=== PATIENT | male | born 1950 | race Caucasian/White ===

== ENCOUNTER 2019-03-23 17:13 | Emergency (ER) | payer MEDICARE, BC ==
[2019-03-23] MEDS ORDERED: Sodium Chloride 0.9% 10 ML Syringe FLUSH PRN (17:21)
[2019-03-23] MEDS ORDERED: 50% Dextrose in Water 50 ML Syringe IVPUSH ONE (17:28)
--- NOTE | 2019-03-23 17:55 | EDM.PDOC ---
ED HPI GENERAL MEDICAL PROBLEM - General Chief Complaint: Diabetic Complaint Stated Complaint: HYPOGLYCEMIC Time Seen by Provider: 03/23/19 17:20 Source of Information: Reports: Patient History Limitations: Reports: No Limitations - History of Present Illness INITIAL COMMENTS - FREE TEXT/NARRATIVE: Patient is a 69-year-old gentleman who presents to the emergency department this evening with a complaint of hypoglycemia. Per family, patient was acting confused at approximately 4 p.m. today and they suspected that his glucose was low. Glucose was assessed at 35. Family decided to bring patient to the emergency department. Upon presentation, patient was coherent and given juice and crackers by nurse. Recheck glucose was 66. Patient states that he did have a large lunch today, and believes he took his appropriate dose of insulin earlier today. However, he is not sure. Patient does have history of glucose swings. He stated that he took his normal dose this morning without checking his glucose. However, for lunch he had just protein and no carbohydrates. Upon examination, patient states that he feels much better, denies any chest pain, shortness of breath, fever, headache, abdominal pain, nausea, or vomiting. Patient states he does have a wound and suspected infection of left forearm. However, he is not on antibiotics at this time. Patient takes just insulin and no oral diabetic medication. Onset: Today Duration: Hour(s): Severity: Mild Improves with: Reports: None Worsens with: Reports: None Associated Symptoms: Reports: Confusion, Diaphoresis, Weakness. Denies: Chest Pain, Fever/Chills, Nausea/Vomiting, Rash, Shortness of Breath, Syncope - Related Data Allergies Allergy/AdvReac Type Severity Reaction Status Date / Time Likuzre-Omw-Ixg Reductase Allergy Hives Verified 03/23/19 17:24 Inhibitor Home Meds: Home Meds Benazepril/Hydrochlorothiazide [Lotensin Hct 20-25 mg Tablet] 1 each PO DAILY [History] Ezetimibe 10 mg PO DAILY 03/23/19 [History] Furosemide [Lasix] 40 mg PO BID 03/23/19 [History] Insulin Aspart [NovoLOG] 30 - 40 unit SUBCUT TID 03/23/19 [History] Insulin Detemir [Levemir] 50 unit SUBCUT BEDTIME 03/23/19 [History] Omeprazole 20 mg PO BEDTIME 03/23/19 [History] ED ROS GENERAL - Review of Systems Review Of Systems: ROS reveals no pertinent complaints other than HPI. Constitutional: Reports: Weakness, Diaphoresis HEENT: Reports: No Symptoms Respiratory: Reports: No Symptoms Cardiovascular: Reports: No Symptoms Endocrine: Reports: Low Glucose GI/Abdominal: Reports: No Symptoms : Reports: No Symptoms Musculoskeletal: Reports: No Symptoms Skin: Reports: No Symptoms Neurological: Reports: Confusion, Weakness Psychiatric: Reports: No Symptoms Hematologic/Lymphatic: Reports: No Symptoms Immunologic: Reports: No Symptoms ED EXAM GENERAL NO PERIP PULSE - Physical Exam Exam: See Below Exam Limited By: No Limitations General Appearance: Alert, WD/WN, No Apparent Distress Eye Exam: Bilateral Eye: Normal Inspection Nose: Normal Inspection, Normal Mucosa, No Blood Throat/Mouth: Normal Inspection, Normal Oropharynx, No Airway Compromise Head: Atraumatic, Normocephalic Neck: Normal Inspection Respiratory/Chest: No Respiratory Distress, Lungs Clear, Normal Breath Sounds, No Accessory Muscle Use, Chest Non-Tender Cardiovascular: No Murmur, Extra Beats GI/Abdominal: Normal Bowel Sounds, Soft, Non-Tender, No Organomegaly, No Distention, No Abnormal Bruit, No Mass Back Exam: Normal Inspection. No: CVA Tenderness (L), CVA Tenderness (R) Extremities: Normal Inspection, No Pedal Edema Neurological: Alert, Oriented, CN II-XII Intact, Normal Cognition, No Motor/ Sensory Deficits Psychiatric: Normal Affect, Normal Mood Skin Exam: Warm, Dry, Intact, Normal Color, No Rash EKG INTERPRETATION EKG Date: 03/23/19 Time: 17:45 Rhythm: Other (Sinus rhythm with PVCs) Rate (Beats/Min): 72 [place]: Normal P-Wave: Present QRS: Normal ST-T: Normal QT: Normal Comparison: NA - No Prior EKG Course - Vital Signs Last Recorded V/S: Last Vital Signs Temp 97 F 03/23/19 17:15 Pulse 82 03/23/19 17:15 Resp 20 03/23/19 17:15 BP 143/75 H 03/23/19 17:15 Pulse Ox 98 03/23/19 17:15 - Orders/Labs/Meds Orders: Active Orders 24 hr Category Date Time Status EKG Documentation Completion [RC] ASDIRECTED Care 03/23/19 17:40 Ordered Peripheral IV Care [RC] . DIRECTED Care 03/23/19 17:23 Ordered Sodium Chloride 0.9% [Saline Flush] Med 03/23/19 17:21 Ordered 10 ml FLUSH Q8HR PRN Peripheral IV Insertion Adult [OM.PC] Routine Oth 03/23/19 17:21 Ordered EKG 12 Lead [EK] Routine Ther 03/23/19 17:39 Ordered Medication Orders Sodium Chloride (Saline Flush) 10 ml FLUSH Q8HR PRN PRN Reason: keep vein open Last Admin: 03/23/19 17:45 Dose: 10 ml Labs: Laboratory Tests 03/23/19 03/23/19 03/23/19 Range/Units 17:17 17:31 17:45 WBC 11.76 H (5.00-10.00) 10^3/uL RBC 3.96 L (4.50-6.00) 10^6/uL Hgb 12.5 L (13.0-17.0) g/dL Hct 37.8 L (40.0-52.0) % MCV 95.5 H (82.0-92.0) fL MCH 31.6 H (27.0-31.0) pg MCHC 33.1 (32.0-36.0) g/dL RDW 13.6 (11.5-14.5) % Plt Count 239 (150-400) 10^3/uL MPV 10.5 H (7.4-10.4) fL Immature Gran % (Auto) 0.4 (0.0-5.0) % Neut % (Auto) 49.8 L (50.0-70.0) % Lymph % (Auto) 32.9 (20.0-40.0) % Wright % (Auto) 16.2 H (2.0-8.0) % Eos % (Auto) 0.4 L (1.0-3.0) % Baso % (Auto) 0.3 (0.0-1.0) % Immature Gran # (Auto) 0.05 (0.00-0.50) 10^3/uL Neut # (Auto) 5.85 (2.50-7.00) 10^3/uL Lymph # (Auto) 3.87 (1.00-4.00) 10^3/uL Wright # (Auto) 1.91 H (0.10-0.80) 10^3/uL Eos # (Auto) 0.05 L (0.10-0.30) 10^3/uL Baso # (Auto) 0.03 (0.00-0.10) 10^3/uL Sodium (136-145) mmol/L Potassium (3.3-5.3) mmol/L Chloride (98-115) mmol/L Carbon Dioxide (21.0-32.0) mmol/L Anion Gap (5-15) mmol/L BUN (6-25) mg/dL Creatinine (0.51-1.17) mg/dL Est Cr Clr Drug Dosing mL/min Estimated GFR (MDRD) mL/min Glucose (75 - 99) mg/dL POC Glucose 36 L* 66 L (74-106) mg/dl Calcium (8.7-10.3) mg/dL Total Bilirubin (0.2-1.0) mg/dL AST (15-37) U/L ALT (12-78) U/L Alkaline Phosphatase (46-116) IU/L Total Protein (6.4-8.2) g/dL Albumin (3.00-4.80) g/dL Specimen Type Urine Color (YELLOW) Urine Appearance (CLEAR) Urine pH (5.0-9.0) Ur Specific [place] (1.005-1.030) Urine Protein (NEGATIVE) mg/dL Urine Glucose (UA) (NEGATIVE) mg/dL Urine Ketones (NEGATIVE) mg/dL Urine Occult Blood (NEGATIVE) Urine Nitrite (NEGATIVE) Urine Bilirubin (NEGATIVE) Urine Urobilinogen (0.2-1.0) E.U./dL Ur Leukocyte Esterase (NEGATIVE) Urine RBC (0-5) /HPF Urine WBC (0-5) /HPF Ur Epithelial Cells /LPF Urine Bacteria (NONE TO FEW) /HPF 03/23/19 03/23/19 03/23/19 Range/Units 17:45 18:08 18:18 WBC (5.00-10.00) 10^3/uL RBC (4.50-6.00) 10^6/uL Hgb (13.0-17.0) g/dL Hct (40.0-52.0) % MCV (82.0-92.0) fL MCH (27.0-31.0) pg MCHC (32.0-36.0) g/dL RDW (11.5-14.5) % Plt Count (150-400) 10^3/uL MPV (7.4-10.4) fL Immature Gran % (Auto) (0.0-5.0) % Neut % (Auto) (50.0-70.0) % Lymph % (Auto) (20.0-40.0) % Wright % (Auto) (2.0-8.0) % Eos % (Auto) (1.0-3.0) % Baso % (Auto) (0.0-1.0) % Immature Gran # (Auto) (0.00-0.50) 10^3/uL Neut # (Auto) (2.50-7.00) 10^3/uL Lymph # (Auto) (1.00-4.00) 10^3/uL Wright # (Auto) (0.10-0.80) 10^3/uL Eos # (Auto) (0.10-0.30) 10^3/uL Baso # (Auto) (0.00-0.10) 10^3/uL Sodium 137 (136-145) mmol/L Potassium 3.9 (3.3-5.3) mmol/L Chloride 98 (98-115) mmol/L Carbon Dioxide 28.6 (21.0-32.0) mmol/L Anion Gap 14.3 (5-15) mmol/L BUN 25 (6-25) mg/dL Creatinine 1.24 H (0.51-1.17) mg/dL Est Cr Clr Drug Dosing 58.87 mL/min Estimated GFR (MDRD) 58 mL/min Glucose 107 H (75 - 99) mg/dL POC Glucose 211 H (74-106) mg/dl Calcium 8.6 L (8.7-10.3) mg/dL Total Bilirubin 0.4 (0.2-1.0) mg/dL AST 21 (15-37) U/L ALT 25 (12-78) U/L Alkaline Phosphatase 113 (46-116) IU/L Total Protein 6.1 L (6.4-8.2) g/dL Albumin 3.63 (3.00-4.80) g/dL Specimen Type Urincc Urine Color Yellow (YELLOW) Urine Appearance Clear (CLEAR) Urine pH 6.0 (5.0-9.0) Ur Specific [place] 1.020 (1.005-1.030) Urine Protein Negative (NEGATIVE) mg/dL Urine Glucose (UA) Negative (NEGATIVE) mg/dL Urine Ketones Negative (NEGATIVE) mg/dL Urine Occult Blood Negative (NEGATIVE) Urine Nitrite Negative (NEGATIVE) Urine Bilirubin Negative (NEGATIVE) Urine Urobilinogen 1.0 (0.2-1.0) E.U./dL Ur Leukocyte Esterase Negative (NEGATIVE) Urine RBC Not seen (0-5) /HPF Urine WBC Not seen (0-5) /HPF Ur Epithelial Cells Occasional /LPF Urine Bacteria Not seen (NONE TO FEW) /HPF Meds: Medications Generic Name Dose Route Start Last Admin Trade Name Freq PRN Reason Stop Dose Admin Sodium Chloride 10 ml 03/23/19 17:21 03/23/19 17:45 Saline Flush FLUSH 10 ml Q8HR PRN Administration keep vein open Discontinued Medications Generic Name Dose Route Start Last Admin Trade Name Freq PRN Reason Stop Dose Admin Dextrose/Water 50 ml 03/23/19 17:28 03/23/19 17:45 Dextrose 50% In Water IVPUSH 03/23/19 17:29 50 ml ONETIME ONE Administration - Re-Assessments/Exams Free Text/Narrative Re-Assessment/Exam: 03/23/19 18:43 Patient afebrile, vital signs stable, feels much better, glucose at 200. Family members at bedside. Discussed with patient the importance of checking her glucose prior to administration of insulin. Patient will follow-up with PCP tomorrow Departure - Departure Time of Disposition: 18:45 Disposition: Home, Self-Care 01 Condition: Good Clinical Impression: Hypoglycemia Diabetes mellitus Qualifiers: Diabetes mellitus type: type 2 Diabetes mellitus chcf insulin use: with chcf use Diabetes mellitus complication status: without complication Qualified Code(s): E11.9 - Type 2 diabetes mellitus without complications; Z79.4 - residential (current) use of insulin - Discharge Information Instructions: Insulin Treatment for Diabetes Mellitus, Tips for Eating Away From Home If You Have Diabetes, Blood Glucose Monitoring, Adult, Hypoglycemia, [id number], Type 2 Diabetes Mellitus, Self Care, Adult, [id number] Referrals: Dionne Hester MD [Physician] - Forms: ED Department Discharge Additional Instructions: Follow-up at [facility] in 1-2 days. Return to emergency department sooner if symptoms continue or worsen. Check glucose prior to insulin administration. Follow diabetic diet. - My Orders Last 24 Hours: My Active Orders 03/23/19 17:21 Sodium Chloride 0.9% [Saline Flush] 10 ml FLUSH Q8HR PRN Peripheral IV Insertion Adult [OM.PC] Routine 03/23/19 17:23 Peripheral IV Care [RC] . DIRECTED 03/23/19 17:39 EKG 12 Lead [EK] Routine 03/23/19 17:40 EKG Documentation Completion [RC] ASDIRECTED - Assessment/Plan Last 24 Hours: My Active Orders 03/23/19 17:21 Sodium Chloride 0.9% [Saline Flush] 10 ml FLUSH Q8HR PRN Peripheral IV Insertion Adult [OM.PC] Routine 03/23/19 17:23 Peripheral IV Care [RC] . DIRECTED 03/23/19 17:39 EKG 12 Lead [EK] Routine 03/23/19 17:40 EKG Documentation Completion [RC] ASDIRECTED Assessment:: Hypoglycemia Plan: Follow up PCP tomorrow
[2019-03-23 18:25] LABS: ANION GAP 14.3 mmol/L (5-15)
== END 2019-03-23 19:00 | disposition home or self-care (01) ==
LOC: KA.ED 17:13
DX: E11.649 Type 2 diabetes mellitus with hypoglycemia without coma (principal); Z79.4 Long term (current) use of insulin; Z88.8 Allergy status to other drugs, medicaments and biological substances
CPT/HCPCS: 36415; 80053; 81001; 82962; 85025; 93005; 96374; 99285-25; J7060